=== PATIENT | female | born 1990 | race African-American/Black ===

== ENCOUNTER 2022-07-23 07:45 | Inpatient (IN) | payer OTHER ==
[~2022-07-23 07:45] MED LIST: ELECTROLYTE-148 SOLN 1,000 ML IV SCH; OXYTOCIN 30 UNITS in 0.9% NS 30 UNIT/500 ML INFUS.BAG IVPB SCH
[2022-07-23 08:44] VITALS: BMI 27.6
[2022-07-23 08:52] LABS: BASO % 0.4 % (0-2.0); EOS % 1.3 % (0-4.5); HEMATOCRIT 33.8 % (32.4-45.2); HEMOGLOBIN 11.3 GM/dL (10.7-15.3); INR 0.95 (0.83-1.09); LYMPH % 26.9 % (8-40); MCH 26.5 pg (25.7-33.7); MCHC 33.5 g/dl (32.0-36.0); MEAN CELL VOLUME 79.2 fl (80-96); MEAN PLT VOLUME 9.9 fl (7.5-11.1); MONO % 9.6 % (3.8-10.2); NEUT % 61.8 % (42.8-82.8); PLATELET COUNT 192 10^3/uL (134-434); RBC 4.27 M/mm3 (3.60-5.2); RDW 15.9 % (11.6-15.6); WHITE BLOOD COUNT 4.6 K/mm3 (4.0-10.0)
[2022-07-23] MEDS ORDERED: OXYTOCIN 30 UNITS in 0.9% NS 30 UNIT/500 ML INFUS.BAG IVPB ONE (09:05)
[2022-07-23 09:08] LABS: BLOOD UREA NITROGEN 6.8 mg/dL (7-18); CALCIUM 9.3 mg/dL (8.5-10.1)
[2022-07-23 09:10] LABS: CREATININE 0.6 mg/dL (0.55-1.3)
[2022-07-23 12:03] LABS: SYPHILIS W/ RPR CONF NON-REACTIVE (NONREACTIVE)
[2022-07-23 12:39] LABS: HIV INTERPRETATION NEGATIVE (NEGATIVE)
[2022-07-23] MEDS ORDERED: FENTANYL/BUPIVACAINE/NS/PF - PCEA - 50 ML DISP.SYRIN EP ONE (14:06)
[2022-07-23] MEDS ORDERED: ELECTROLYTE-148 SOLN 1,000 ML IV SCH (14:30)
[2022-07-23] MEDS ORDERED: NALOXONE HCL 0.4 MG/ML VIAL IVPUSH PRN (14:37)
[2022-07-23] MEDS ORDERED: FENTANYL/BUPIVACAINE/NS/PF - PCEA - 50 ML DISP.SYRIN EP SCH (14:45)
[2022-07-23] MEDS ORDERED: OXYTOCIN 20 UNITS in 0.9% NS 20 UNIT/1,000 ML INFUS.BAG IV ONE (15:25)
[2022-07-23] MEDS ORDERED: WITCH HAZEL 50% (TUCKS) 40 PAD/JAR PAD TP PRN (16:24)
[2022-07-23] MEDS ORDERED: ACETAMINOPHEN 325 MG TABLET (FP) PO PRN (16:24)
[2022-07-23] MEDS ORDERED: BENZOCAINE 20% 57 GM BOTTLE TP PRN (16:24)
[2022-07-23] MEDS ORDERED: BENZOCAINE 28 GM HEMORRHOIDAL OINTMENT TP PRN (16:24)
[2022-07-23] MEDS ORDERED: BISACODYL 10 MG SUPP.RECT RC PRN (16:24)
[2022-07-23] MEDS ORDERED: METHYLERGONOVINE MALEATE 0.2 MG/1 ML AMP IM PRN (16:24)
[2022-07-23] MEDS ORDERED: oxyCODONE HCL 5 MG TABLET PO PRN (16:24)
[2022-07-23] MEDS ORDERED: OXYTOCIN 20 UNITS in 0.9% NS 20 UNIT/1,000 ML INFUS.BAG IV SCH (16:30)
[2022-07-23] MEDS: IBUPROFEN 600 MG TABLET (FP) PO PRN (19:03)
[2022-07-24 06:50] LABS: BASO % 0.3 % (0-2.0); EOS % 2.2 % (0-4.5); HEMATOCRIT 30.3 % (32.4-45.2); HEMOGLOBIN 10.1 GM/dL (10.7-15.3); LYMPH % 20.8 % (8-40); MCH 26.5 pg (25.7-33.7); MCHC 33.3 g/dl (32.0-36.0); MEAN CELL VOLUME 79.6 fl (80-96); MEAN PLT VOLUME 9.8 fl (7.5-11.1); NEUT % 64.7 % (42.8-82.8); PLATELET COUNT 162 10^3/uL (134-434); RDW 15.9 % (11.6-15.6); WHITE BLOOD COUNT 9.1 K/mm3 (4.0-10.0)
[2022-07-24] MEDS: PRENATAL VITAMINS W/ FOLIC ACID TABLET (FP) PO SCH (10:01)
[2022-07-24 13:07] VITALS: RESP 18
[2022-07-24] MEDS ORDERED: SENNOSIDES/DOCUSATE COMBO (SENNA PLUS) TABLET (UD) PO PRN (22:00)
[2022-07-24 22:29] VITALS: TEMP 98
[2022-07-25] MEDS: IBUPROFEN 600 MG TABLET (FP) PO PRN (04:41)
[2022-07-25 09:01] VITALS: BP 135/80; PULSE 77
[2022-07-25] MEDS: PRENATAL VITAMINS W/ FOLIC ACID TABLET (FP) PO SCH (10:03)
== END 2022-07-25 15:36 | disposition home or self-care (01) | DRG 807 ==
LOC: JLDR 07:45 → J3W 17:17
PROVIDERS: ADMIT Obstetrics & Gynecology; ATTEND Obstetrics & Gynecology
PROC: 10E0XZZ Delivery of Products of Conception, External Approach (ICD-10-PCS; principal; 2022-07-23)
PROC: 0HQ9XZZ Repair Perineum Skin, External Approach (ICD-10-PCS; 2022-07-23)
DX: O70.0 First degree perineal laceration during delivery (principal); Z37.0 Single live birth; Z3A.39 39 weeks gestation of pregnancy
CPT/HCPCS: 36415; 80048; 85025; 85610; 85730; 86780; 86850; 86900; 86901; 87389; C9803-CS; U0003; U0005